=== PATIENT | female | born 1995 | race African-American/Black ===

== ENCOUNTER 2017-03-06 17:50 | Emergency (ER) | payer OTHER ==
[~2017-03-06] VITALS: Ht 177.8 cm; Wt 94.5 kg
[~2017-03-06 17:50] MED LIST: ALBU8HFA IH
[2017-03-06 18:01] VITALS: BP 139/86
== END 2017-03-06 18:55 | disposition left against medical advice (07) ==
LOC: EMS 17:53
DX: J02.9 Acute pharyngitis, unspecified (principal); J45.909 Unspecified asthma, uncomplicated; Z53.21 Procedure and treatment not carried out due to patient leaving prior to being seen by health care provider